=== PATIENT | male | born 1960 | race Caucasian/White ===

== ENCOUNTER 2019-03-26 16:52 | Emergency (ER) | payer MEDICARE, OTHER ==
--- NOTE | 2019-03-26 17:00 | NUR ---
Called No response was informed by [employer] Matilde "He left said [place] was going to [place]"
== END 2019-03-26 17:05 | disposition left against medical advice (07) ==
LOC: ER 16:52
DX: Z53.21 Procedure and treatment not carried out due to patient leaving prior to being seen by health care provider (principal)